=== PATIENT | male | born 1975 | race Caucasian/White ===

== ENCOUNTER 2022-05-31 13:11 | Outpatient (CLI) | payer MEDICAID, SELFPAY ==
[2022-05-31 17:13] LABS: SARS PCR* Negative SARS-CoV-2 (Negative)
== END 2022-05-31 13:12 | disposition home or self-care (01) ==
LOC: KYNREF 13:11
PROVIDERS: PCP Internal Medicine; Visit Provider Nurse Practitioner Family
DX: Z20.822 Contact with and (suspected) exposure to COVID-19 (principal); R05.8 Other specified cough
CPT/HCPCS: 87635

== ENCOUNTER 2022-11-06 15:43 | Outpatient (CLI) | payer OTHER, MEDICAID, SELFPAY | END 2022-11-06 15:44 | disposition home or self-care (01) | LOC: NFLDREF 15:46 | PROVIDERS: PCP Internal Medicine; Visit Provider Internal Medicine | DX: R10.9 Unspecified abdominal pain (principal); M25.551 Pain in right hip; V89.2XXA Person injured in unspecified motor-vehicle accident, traffic, initial encounter | CPT/HCPCS: 80053 ==

== ENCOUNTER 2022-11-08 14:37 | Outpatient (CLI) | payer OTHER, MEDICAID, SELFPAY ==
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
== END 2022-11-08 14:38 | disposition home or self-care (01) ==
LOC: CT 14:37
PROVIDERS: PCP Internal Medicine; Visit Provider Internal Medicine
DX: S30.1XXA Contusion of abdominal wall, initial encounter (principal)
CPT/HCPCS: 74177; Q9967

== ENCOUNTER 2022-11-08 15:02 | Outpatient (CLI) | payer OTHER, MEDICAID, SELFPAY | END 2022-11-08 15:03 | disposition home or self-care (01) | LOC: NFLDREF 11-10 09:03 | PROVIDERS: PCP Internal Medicine; Referring Provider Internal Medicine; Visit Provider Internal Medicine | DX: R10.9 Unspecified abdominal pain (principal); V89.2XXA Person injured in unspecified motor-vehicle accident, traffic, initial encounter | CPT/HCPCS: 87086 ==

== ENCOUNTER 2024-07-30 08:15 | Outpatient (RCR) | payer OTHER, SELFPAY ==
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
== END 2024-11-27 23:59 | disposition home or self-care (01) ==
PROVIDERS: PCP Internal Medicine; Visit Provider Internal Medicine
DX: M25.551 Pain in right hip (principal); M25.552 Pain in left hip; V89.2XXA Person injured in unspecified motor-vehicle accident, traffic, initial encounter; Z51.89 Encounter for other specified aftercare
CPT/HCPCS: 97110; 97140; 97161